=== PATIENT | female | born 1970 | race Caucasian/White ===

== ENCOUNTER 2016-12-15 08:30 | Emergency (ER) | payer MEDICAID ==
[2016-12-15 08:35] VITALS: TEMP 97.5
[2016-12-15] MEDS ORDERED: AZITHROMYCIN 250 MG TAB PO ONE (08:56)
--- NOTE | 2016-12-15 08:59 | EDPHY ---
H & P Stated Complaint: COUGH, ST Time Seen by Provider: 12/15/16 08:53 HPI/ROS: CHIEF COMPLAINT: Sore throat HISTORY OF PRESENT ILLNESS: The patient is a 46-year-old female who comes to the emergency department complaining of a sore throat. She states that she has had the symptoms for 3 days. Mild sinus congestion. No headache. No fever. She has been taking ibuprofen. No trauma. No respiratory distress. REVIEW OF SYSTEMS: Constitutional: denies: chills, fever, recent illness, recent injury EENTM: See HPI Respiratory: denies: cough, shortness of breath Cardiac: denies: chest pain, irregular heart rate, lightheadedness, palpitations Gastrointestinal/Abdominal: denies: abdominal pain, diarrhea, nausea, vomiting, blood streaked stools Genitourinary: denies: dysuria, frequency, hematuria, pain Musculoskeletal: denies: joint pain, muscle pain Skin: denies: lesions, rash, jaundice, bruising Neurological: denies: headache, numbness, paresthesia, tingling, dizziness, weakness Hematologic/Lymphatic: denies: blood clots, easy bleeding, easy bruising Immunologic/allergic: denies: HIV/AIDS, transplant EXAM: GENERAL: Well-appearing, well-nourished and in no acute distress. HEAD: Atraumatic, normocephalic. EYES: Pupils equal round and reactive to light, extraocular movements intact, sclera anicteric, conjunctiva are normal. ENT: TMs normal, nares patent, pharynx erythematous with mild purulence. Moist mucous membranes. NECK: Normal range of motion, supple without lymphadenopathy or JVD. LUNGS: Breath sounds clear to auscultation bilaterally and equal. No wheezes rales or rhonchi. HEART: Regular rate and rhythm without murmurs, rubs or gallops. ABDOMEN: Soft, nontender, normoactive bowel sounds. No guarding, no rebound. No masses appreciated. BACK: No CVA tenderness, no spinal tenderness, step-offs or deformities EXTREMITIES: Normal range of motion, no pitting or edema. No clubbing or cyanosis. NEUROLOGICAL: Cranial nerves II through XII grossly intact. Normal speech, normal gait. 5/5 strength, normal movement in all extremities, normal sensation PSYCH: Normal mood, normal affect. SKIN: Warm, dry, normal turgor, no visible rashes or lesions. Source: Patient Exam Limitations: No limitations - Personal History LMP (Females 10-55): 22-28 Days Ago Current Tetanus/Diphtheria Vaccine: Yes Current Tetanus Diphtheria and Acellular Pertussis (TDAP): Yes Tetanus Vaccine Date: ~2011 - Medical/Surgical History Hx Asthma: Yes Hx Chronic Respiratory Disease: No Hx Diabetes: No Hx Cardiac Disease: No Hx Renal Disease: No Hx Cirrhosis: No Hx Alcoholism: No Hx HIV/AIDS: No Hx Splenectomy or Spleen Trauma: No Other PMH: PSH: B feet x7; . PMH: ASTHMA, KNEE PAIN; palomo cysts behind B knee; pna; chronic bronchitis, arthritis. chronic pain tubal ligation - Family History Significant Family History: No pertinent family hx - Social History Smoking Status: Heavy smoker Alcohol Use: Sober Drug Use: None Constitutional: Initial Vital Signs Temperature (C) 36.4 C 12/15/16 08:32 Heart Rate 93 12/15/16 08:32 Respiratory Rate 18 12/15/16 08:32 Blood Pressure 146/102 H 12/15/16 08:32 O2 Sat (%) 91 L 12/15/16 08:32 O2 Delivery Mode Room Air Allergies/Adverse Reactions: naproxen Allergy (Intermediate, Verified 09/20/16 14:40) Hives Home Medications: Medication Instructions Recorded IBUPROFEN 09/20/16 Tylenol 09/20/16 AZITHROMYCIN [Z-PACK] 250 mg PO DAILY #4 tab 12/15/16 Medical Decision Making ED Course/Re-evaluation: Will treat the patient for strep throat. She agrees with this plan. I will start her on azithromycin. We discussed indications for returning. No respiratory distress. Differential Diagnosis: Partial list of the Differential diagnosis considered include but were not limited to; pharyngitis, strep throat, upper respiratory tract infection and although unlikely based on the history and physical exam, I also considered pneumonia, abscess. I discussed these differential diagnoses and the plan with the patient as well as the usual and expected course. The patient understands that the diagnosis is provisional and that in medicine we are not always correct and that further workup is often warranted. Usual and customary warnings were given. All of the patient's questions were answered. The patient was instructed to return to the emergency department should the symptoms at all worsen or return, otherwise to followup with the physician as we discussed. - Data Points Medications Given: Discontinued Medications Azithromycin (Zithromax) 500 mg PO EDNOW ONE PRN Reason: Protocol Stop: 12/15/16 08:57 Last Admin: 12/15/16 09:15 Dose: 500 mg Departure - Departure Disposition: Home, Routine, Self-Care Clinical Impression: Pharyngitis Qualifiers: Pharyngitis/tonsillitis etiology: unspecified etiology Qualified Code(s): J02.9 - Acute pharyngitis, unspecified Condition: Good Instructions: Pharyngitis (ED) Referrals: Echo Macario DO [Doctor of Osteopathy] - As per Instructions Prescriptions: AZITHROMYCIN [Z-PACK] 250 mg PO DAILY #4 tab
[2016-12-15 09:24] VITALS: BP 128/86; PULSE 80; RESP 16; O2SAT 92
== END 2016-12-15 09:24 | disposition home or self-care (01) ==
DX: J02.9 Acute pharyngitis, unspecified (principal); J45.909 Unspecified asthma, uncomplicated; F17.200 Nicotine dependence, unspecified, uncomplicated

== ENCOUNTER 2017-12-01 10:35 | Emergency (ER) | payer MEDICAID, OTHER ==
[2017-12-01 10:48] VITALS: TEMP 97.5; O2SAT 94
[2017-12-01] MEDS ORDERED: ACETAMINOPHEN 325 MG TAB PO ONE (11:04)
[2017-12-01] MEDS ORDERED: IBUPROFEN 600 MG TAB PO ONE (11:04)
[2017-12-01] MEDS ORDERED: traMADol 50 MG TAB PO ONE (11:04)
--- NOTE | 2017-12-01 11:12 | EDPHY ---
H & P Time Seen by Provider: 12/01/17 10:53 HPI/ROS: This patient complains of right knee pain over the past month with particular increase the pain over the past week. She denies any trauma but has had the pain in the past with an x-ray here done after a knee contusion that revealed tricompartmental osteoarthritis a couple years ago. She has not followed up with the orthopedic physician after that knee contusion here. She reports minimal improvement from ibuprofen Tylenol but has not taken any today and currently reports 8/10 pain with the feeling of slight swelling and she questions if there may be some lateral patellar displacement on the affected knee as well. She describes the pain as achy and sharp in nature. Pain worsens with walking and improves but when she rests. No other exacerbating factors. She is accompanied by her . They wrote a bus to get here. ROS: Constitutional: No fevers. HEENT: No complaints new line pulmonary: No complaints Cardiovascular: No discoloration the affected knee or lower extremity. Integumentary: No skin rash or redness. Neuro: No numbness or tingling. Musculoskeletal: No acute trauma. No feeling of laxity to the affected knee. 5 point ROS is otherwise negative Past Medical/Surgical History: Ijrunzqvgmqrtz-ujlgfhybbgsizivh-kowmy Moderate obesity Smoking Status: Heavy smoker Physical Exam: Physical Exam Vital signs are normal. General: Moderately obese pleasant 47-year-old female No acute distress Eyes: Pupils equal and react to light. Extraocular motions are intact. Lungs: No respiratory distress. Cardiac: Brisk capillary refill is intact throughout. Pulses are 2+ and symmetric in the affected extremity. Skin: No rash or pallor. Extremities: Atraumatic normal except for right knee Right knee exam: Patient has mild circumferential swelling. She has tenderness laterally and posteriorly. No laxity or increased pain with Taylor' s exam, varus or valgus stress. Neuro: Alert and oriented x3 with no sensorimotor deficits. Initial differential diagnosis: Exacerbation of osteoarthritis, patellofemoral syndrome, knee strain Constitutional: Initial Vital Signs Temperature (C) 36.4 C 12/01/17 10:43 Heart Rate 86 12/01/17 10:43 Respiratory Rate 14 12/01/17 10:43 Blood Pressure 136/97 H 12/01/17 10:43 O2 Sat (%) 94 12/01/17 10:43 O2 Delivery Mode Room Air Allergies/Adverse Reactions: naproxen Allergy (Intermediate, Verified 09/20/16 14:40) Hives Home Medications: Medication Instructions Recorded IBUPROFEN 09/20/16 Tylenol 09/20/16 Ibuprofen [Motrin (*)] 600 mg PO Q6 PRN #30 tab 12/01/17 traMADol [Ultram 50 mg (*)] 50 - 100 mg PO Q4 PRN #20 tab 12/01/17 MDM/Departure - MDM Diagnostics: Knee x-rays: Significant osteoarthritis and lateral tracking of the patella by my interpretation. Imaging Results: Imaging Impressions Knee X-Ray 12/01/17 00:00 Impression: Progressive tricompartmental knee osteoarthritis, compared to 2015. Imaging: I viewed and interpreted images myself Medications Given: Discontinued Medications Acetaminophen (Tylenol) 975 mg PO EDNOW ONE Stop: 12/01/17 11:05 Last Admin: 12/01/17 11:10 Dose: 975 mg Ibuprofen (Motrin) 600 mg PO EDNOW ONE Stop: 12/01/17 11:05 Last Admin: 12/01/17 11:10 Dose: 600 mg Tramadol HCl (Ultram) 50 mg PO EDNOW ONE Stop: 12/01/17 11:05 Last Admin: 12/01/17 11:10 Dose: 50 mg ED Course/Re-evaluation: I counseled this patient regarding osteoarthritis and patellofemoral syndrome. She we did not have a neoprene brace that would fit her. She declined an Kojo wrap. I counseled the patient regarding analgesics and patellofemoral exercises with plan to follow up with Orthopedics-Dr. Kumari is on-call as an outpatient. I Answered all of her questions prior to discharge home. - Depart Disposition: Home, Routine, Self-Care Clinical Impression: Patellofemoral syndrome of right knee Osteoarthritis of knee Qualifiers: Osteoarthritis type: primary Laterality: right Qualified Code(s): M17.11 - Unilateral primary osteoarthritis, right knee Condition: Good Instructions: Osteoarthritis (ED), Patellofemoral Pain Syndrome (ED) Additional Instructions: Diagnoses: 1. Osteoarthritis of knee 2. Patellofemoral syndrome Plan: Ibuprofen Tylenol for pain Tramadol in addition for pain that prevents sleep. No driving, alcohol or come tramadol Call Dr. Kumari-orthopedic physician to arrange follow-up appointment for further evaluation Also establish primary care physician-Dr. Tim or other primary care physician of her choice and follow up with them as well. Wear the knee brace when your up and about to tried adjust the knee cap toward the medial aspect of ear knee-toward the inside. You can also look up exercises to strengthen year medial thigh muscles to help with her patellofemoral syndrome. Return emergency department for any significant worsening despite the treatment plan. Prescriptions: Ibuprofen [Motrin (*)] 600 mg PO Q6 PRN #30 tab PRN Reason: Pain traMADol [Ultram 50 mg (*)] 50 - 100 mg PO Q4 PRN #20 tab PRN Reason: breakthrough pain Referrals: NONE *PRIMARY CARE P,. [Primary Care Provider] - As per Instructions Keith Kumari MD [Medical Doctor] - As per Instructions Elizabeth Tim MD [[facility] [place]] - As per Instructions
[2017-12-01 12:35] VITALS: BP 143/92; PULSE 82; RESP 12
--- NOTE | 2017-12-01 13:23 | ASMTCMCOM ---
CM Note CM Note Notes: Call received from RAKAN Salas at [facility] [place] Emergency Department. Per Maritza, pt states she does not have the financial means to fill her prescriptions for Ibuprofen and Tramadol. Pt has [employer] insurance. Encouraged Maritza to see if pt can fill her prescriptions utilizing her health insurance. Also encouraged Maritza to see if pt can obtain generic Ibuprofen over the counter. CM unable to provide Tramadol under medication assistance program due to insurance and narcotic nature of medication. Maritza to discuss options with patient. CM available for any further issues or concerns. Date Signed: 12/01/2017 01:22 PM Electronically Signed By:Fabiola Zee RN
== END 2017-12-01 12:34 | disposition home or self-care (01) ==
LOC: CED 10:35
DX: M17.11 Unilateral primary osteoarthritis, right knee (principal); M22.2X1 Patellofemoral disorders, right knee; F17.200 Nicotine dependence, unspecified, uncomplicated
CPT/HCPCS: 73562-PO; L1830